=== PATIENT | female | born 1995 | race Caucasian/White ===

== ENCOUNTER 2019-10-07 06:48 | Inpatient (IN) | payer OTHER ==
[2019-10-07] VITALS (26 sets, daily range): BP systolic 112–159; BP diastolic 55–93
[~2019-10-07] VITALS: Ht 162.6 cm; Wt 78.6 kg
[2019-10-07] MEDS ORDERED: PRENTAB9 PO (07:17)
[2019-10-07] MEDS ORDERED: COLA100C5 PO (07:17)
[2019-10-07] MEDS ORDERED: LR 1,000 ML IV SCH (08:50)
[2019-10-07] MEDS ORDERED: LACTATED RINGER'S 1000 ML IV ONE (09:00)
[2019-10-07 09:46] LABS: HEMATOCRIT 34.2 % (36.0-47.0); HEMOGLOBIN 11.7 g/dl (12.0-15.5); MEAN CORPUSCULAR HGB CONC 34.2 g/dl (32.0-36.5); MEAN CORPUSCULAR VOLUME 84.9 fl (80.0-96.0); PLATELET COUNT, AUTOMATED 231 10^3/uL (150-450); RED BLOOD COUNT 4.03 10^6/uL (4.00-5.40); WHITE BLOOD COUNT 9.3 10^3/uL (4.0-10.0)
--- NOTE | 2019-10-07 10:03 | HPE ---
DATE OF ADMISSION: 10/07/2019 This lady is a 24-year-old 2, para 0, abortio 1, LMP 12/19/2018, EDC 10/05/2019 at 40 and 2 weeks of gestation with contractions 3 minutes apart, moderate intensity, 3 cm, bulging membranes. GBS negative. Risk factors is she had chlamydia urethritis in 2012, test of cure was negative, transfer of care from at 5 months. PAST HISTORY: 2012 spontaneous AB at 12 weeks. LABORATORY DATA: A+, HIV negative, hep negative, RPR negative, rubella immune. Varicella nonimmune Pap normal. Urine negative. Gonorrhea and chlamydia are negative. 1-hour glucose 108. GBS is negative. Blood pressure 137/71, respirations 18, pulse 71, temperature 98.2. Urine is 10/10, pH 6 and negative. She has a category one strip. Normocephalic, atraumatic. Neck: Full range of motion. Pupils equal and reactive to light. Distal pulses symmetric. No evidence of DVT, PE or superficial phlebitis. Chest is clear bilaterally to the bases. No wheezes or rhonchi. No CVA tenderness. Appropriate symphysis fundus height. Four quadrant bowel sounds are noted. She has no rashes, lesions or pruritus. No arthralgia, myalgia. No complaint of joint pain. No complaint of cough, shortness of breath or dyspnea on exertion. No bleeding. Neuro complete. No frequency, urgency. No nausea, vomiting, diarrhea, constipation. No diabetic issues. GYNECOLOGIC HISTORY: She has no abnormal Pap smears. Previous history of chlamydia positive 2012, test of cure was negative. PAST MEDICAL HISTORY/PAST SURGICAL HISTORY: Unremarkable. FAMILY HISTORY: Noncontributory. SOCIAL HISTORY: She does not smoke, drink abuse drugs. She is to a soldier. No domestic violence. Good support systems. ALLERGIES: She has no known allergies. MEDICATIONS: She is just taking vitamins. We discussed the consent for vaginal delivery, which was delivery of baby through the vagina with possible assistance with forceps or vacuum devices if needed for maternal or indications, forceps or vacuum are devices that consist with vaginal delivery when normal pushing efforts cannot achieve delivery on their own or when delivery is needed as emergency for baby's well-being. Medications may be used to induce or augment labor in order to achieve vaginal delivery and episiotomy may be required to help the baby deliver vaginally. She may also we require repair of lacerations or tears the vagina, vulva that can occur by vaginal delivery. In some cases emergencies occur that require emergency section, which will be discussed you by the provider and is only done for and maternal indications. section is an incision on your abdomen and usually it is safer for mom and baby than continuing labor and is only performed again for clinically indicated conditions. Risks of vaginal delivery include not limited to bleeding, infection, injury to vagina, pelvic structures, injury to baby, damage to the uterus, reaction to anesthesia, uterine rupture, risk of hysterectomy for life-threatening bleeding situations or even . Medications used to induce or augment labor increase risk of possibility of section, hysterectomy, hemorrhage, heart rate abnormalities and need for emergency section. Also the risk of perineal and vaginal lacerations, risk of bowel or bladder injury. With use of forceps or vacuum, may require may develop scratches, hematomas on the head or intracranial bleed. The patient expressed understanding of same. Wishes to have an epidural and wants to continue. Safe to proceed.
[2019-10-07] MEDS ORDERED: FENTANYL 2MCG/ML ROPIVACAINE 0.2% IN 0.9% NACL 100ML IVBAG As Ordered ONE (10:09)
[2019-10-07] MEDS ORDERED: diphenhydrAMINE INJ 50MG/ML VIAL (J1200) IV PRN (11:00)
[2019-10-07] MEDS ORDERED: EPIDURAL/PCA KEYS XX PRN (11:00)
[2019-10-07] MEDS ORDERED: LACTATED RINGER'S 1000 ML IV PRN (11:00)
[2019-10-07] MEDS ORDERED: FENTANYL/ROPIVACAINE/NACL BAG 100 ML EPIDURAL SCH (11:00)
[2019-10-07] MEDS ORDERED: EPIDURAL COMMENT XX SCH (11:00)
[2019-10-07] MEDS ORDERED: ePHEDrine SULFATE 25 MG/5 ML(5MG/ML) SYRINGE IV PRN (11:00)
[2019-10-07] MEDS ORDERED: ONDANSETRON 4MG/2ML VIAL (J2405) IV PRN (11:00)
[2019-10-07] MEDS ORDERED: REFRIGERATOR IV KEYS XX PRN (11:00)
[2019-10-07] MEDS ORDERED: NALOXONE INJ 0.4 MG/1 ML VIAL (J2310) IV PRN (11:00)
--- NOTE | 2019-10-07 13:10 | IPN ---
DATE: 10/07/2019 This lady is a 2, para 0, who was admitted with contractions in active labor. She had an epidural in place. Category one strip. Examination was 6 cm, not well applied, bulging membranes. An artificial rupture of membranes (AROM) was done draining clear liquid. The head did not come down completely over the cervix. We anticipate since the contractions have spaced out that once they start to increase in intensity and duration and moderate in time, that will bring the presenting part down. Presently in the left occiput transverse (LOT) position. The patient is comfortable. Category one strip. Safe to proceed.
[2019-10-07] MEDS ORDERED: OXYTOCIN 30 UNITS IN 0.9% NaCl 500ML IV BAG (J2590) As Ordered ONE (16:39)
[2019-10-07 18:04] LABS: CORD GAS ABE A -2.9; CORD GAS ABE V -2.6; CORD GAS HCO3 A 20.8 MEQ/L; CORD GAS HCO3 V 21.6 MEQ/L; CORD GAS O2 SAT A 76.3 %; CORD GAS O2 SAT V 70.6 %; CORD GAS PCO2 V 36.6 mmHg; CORD GAS PH A 7.404 UNITS; CORD GAS PH V 7.389 UNITS; CORD GAS PO2 A 30.6 mmHg; CORD GAS PO2 V 28.6 mmHg; CORD GAS SBC A 21.5 MEQ/L; CORD GAS SBC V 21.5 MEQ/L; CORD GAS TCO2 A 21.8 MEQ/L; CORD GAS TCO2 V 22.7 MEQ/L
[2019-10-07] MEDS ORDERED: OXYTOCIN DRIP 30 UNITS in IV 1 EA IV SCH (18:06)
[2019-10-07] MEDS ORDERED: IBUPROFEN 600 MG TAB PO PRN (18:15)
[2019-10-07] MEDS ORDERED: MOM 30ML SUSPENSION UDC PO PRN (18:15)
[2019-10-07] MEDS ORDERED: ANUSOL HC CREAM 30GM TOP PRN (18:15)
[2019-10-07] MEDS ORDERED: DIBUCAINE 1% OINTMENT 30GM TOP PRN (18:15)
[2019-10-07] MEDS ORDERED: METHYLERGONOVINE MALEATE 0.2 MG TAB PO PRN (18:15)
[2019-10-07] MEDS ORDERED: ACETAMINOPHEN TAB 650MG DOSE (2X325MG) PO PRN (18:15)
[2019-10-07] MEDS ORDERED: OXYTOCIN INJ 10 UNITS/ML VIAL (J2590) IV ONE (18:15)
[2019-10-07] MEDS ORDERED: MEASLES,MUMPS,RUBELLA VACCINE INJ (MMR-II) (90707) SC SCH (18:15)
[2019-10-07] MEDS ORDERED: RHOGAM 300 MCG (1500 IU) INJ (J2790) IM SCH (18:15)
--- NOTE | 2019-10-07 18:44 | IPN ---
DATE: 10/07/2019 This lady and her requested circumcision of their male . After discussing the risks and benefits of circumcision, the medical and nonmedical indications, the penile block and aftercare, expressed understanding of the penile block, aftercare and bleeding. All questions were answered. A 20-minute discussion. Signed the consent form. We await clearance by the psychotherapist.
--- NOTE | 2019-10-07 18:47 | DN ---
DATE: 10/07/2019 This lady is a 2, now para 1 who was admitted with contractions at 40 and 2/7 weeks of gestation, had an epidural in place, an artifical rupture of membranes (AROM) of clear liquid at full dilatation, spontaneous vaginal delivery of a live male weighing 7 pounds, 3 ounces, 3270 grams. scores of 9 and 9 at one and five minutes respectively. Placenta delivered spontaneously thereafter, three-vessel cord. Membranes and tissues intact. She sustained a first-degree tear which was oversewn in the usual fashion. The anterior, posterior and lateral oh were intact. The sphincter was tight and closed. The uterus contracted well down under Pitocin. Arterial pH is 7.40, base excess -2.9, venous pH 7.38, base excess -2.6. The patient and baby tolerating the procedure well.
[2019-10-07] MEDS: IBUPROFEN 800 MG TAB PO PRN (18:48)
[2019-10-07] MEDS: DOCUSATE SODIUM 100 MG CAP PO PRN (22:25)
[2019-10-07] MEDS: ACETAMINOPHEN 500 MG TAB PO PRN (22:25)
[2019-10-08] MEDS: IBUPROFEN 800 MG TAB PO PRN ×2 (04:08→15:07)
[2019-10-08 06:00] VITALS: BP 112/73
[2019-10-08 07:07] LABS: HEMATOCRIT 28.5 % (36.0-47.0); HEMOGLOBIN 9.8 g/dl (12.0-15.5); MEAN CORPUSCULAR HEMOGLOBIN 29.5 pg (27.0-33.0); MEAN CORPUSCULAR HGB CONC 34.4 g/dl (32.0-36.5); MEAN CORPUSCULAR VOLUME 85.8 fl (80.0-96.0); PLATELET COUNT, AUTOMATED 186 10^3/uL (150-450); RED BLOOD COUNT 3.32 10^6/uL (4.00-5.40); WHITE BLOOD COUNT 10.5 10^3/uL (4.0-10.0)
[2019-10-08] MEDS: PRENATAL VITAMINS CHEWABLE TABLET PO SCH (08:24)
[2019-10-08] MEDS: ACETAMINOPHEN 500 MG TAB PO PRN ×2 (09:57→19:34)
[2019-10-08 18:00] VITALS: BP 110/66
[2019-10-08] MEDS: DOCUSATE SODIUM 100 MG CAP PO PRN (22:37)
[2019-10-09] MEDS: IBUPROFEN 800 MG TAB PO PRN (01:25)
[2019-10-09 06:00] VITALS: BP 120/70
[2019-10-09] MEDS ORDERED: ACET-683 PO (06:12)
[2019-10-09] MEDS ORDERED: DIBU10OI TOP (06:12)
[2019-10-09] MEDS ORDERED: IBUP80TA PO (06:12)
--- NOTE | 2019-10-09 06:18 | IPNPDOC ---
Progress Note Date of Service: Oct 09, 2019 Day#: 2 Progress Note PPD 2 SUBJECT: Amina is a 24yo [id number] s/p uncomplicated on 10/07/19 after presenting in active labor at 40+ weeks, having had 1mll with repair, doing well day # 2. She has been ambulating, voiding spontaneously without issue and tolerating regular diet. Breast feeding without issue. Reports lochia is li ke a normal period. Patient is ambulating well. Has some cramping with . No f/c/n/v/CP/SOB. OBJECTIVE: VITAL SIGNS: Within normal limits, afebrile. Alert and oriented times three. Abdomen: Fundus firm at U-2. Soft, NTTP. Extremities: no pain with palpation of calves ASSESSMENT: Amina is a 24yo [id number] s/p uncomplicated on 10/07/19 after presenting in active labor at 40+ weeks, having had 1mll with repair, doing well day # 2. Vitals within normal limits, afebrile, hemodynamically stable with no evidence of infection. PLAN: 1. Discharge to home today. 2. Tylenol and Motrin for pain. 3. Encourage breast feeding and ambulation. 4. Interested in Nexplanon for contraception 5. Routine PP visit in 6 weeks in clinic. 6. Discussed return precautions at length. 7. Vaginal rest [address] Miladis López MD VS, I&O, 24H, [facility] Vital Signs/I&O Vital Signs Date Time Temp Pulse Resp B/P (MAP) Pulse Ox O2 Delivery O2 Flow Rate FiO2 10/08/19 18:00 99.5 74 18 110/66 (81) 10/07/19 21:30 97 Room Air Laboratory Data 24H LABS Laboratory Tests 2 10/08/19 06:47: Nucleated Red Blood Cells % (auto) 0.0 CBC/BMP Laboratory Tests 10/08/19 06:47 Miladis López MD Oct 09, 2019 06:18
--- NOTE | 2019-10-09 06:21 | DS.PDOC ---
Discharge Summary General Date of Admission Oct 07, 2019 at 08:42 Date of Discharge Oct 09, 2019 Attending Physician: Miladis López MD Discharge Summary PROCEDURES PERFORMED DURING STAY: spontaneous vaginal delivery ADMITTING DIAGNOSES: 1. Active labor at term DISCHARGE DIAGNOSES: 1. Active labor at term COMPLICATIONS/CHIEF COMPLAINT: LABOR. HISTORY OF PRESENT ILLNESS/HOSPITAL COURSE: Amina is a 24yo [id number] s/p uncomplicated on 10/07/19 after presenting in active labor at 40+ weeks, having had 1mll with repair, doing well day # 2. She had benign course and at time of discharge her vitals were within normal limits, afebrile, hemodynamically stable with no evidence of infection. DISCHARGE MEDICATIONS: Please see below. ALLERGIES: Please see below. PHYSICAL EXAMINATION ON DISCHARGE: VITAL SIGNS: Within normal limits, afebrile. Alert and oriented times three. Abdomen: Fundus firm at U-2. Soft, NTTP. Extremities: no pain with palpation of calves LABORATORY DATA: Please see below. DISPOSITION: Home DISCHARGE PLAN/INSTRUCTIONS: 1. Discharge to home today. 2. Tylenol and Motrin for pain. 3. Encourage breast feeding and ambulation. 4. Interested in Nexplanon for contraception 5. Routine PP visit in 6 weeks in clinic. 6. Discussed return precautions at length. 7. Vaginal rest 6 weeks DISCHARGE CONDITION: Stable TIME SPENT ON DISCHARGE: Greater than 30 minutes. Vital Signs/I&Os Vital Signs Date Time Temp Pulse Resp B/P (MAP) Pulse Ox O2 Delivery O2 Flow Rate FiO2 10/08/19 18:00 99.5 74 18 110/66 (81) 10/07/19 21:30 97 Room Air Laboratory Data Labs 24H Laboratory Tests 2 10/08/19 06:47: Nucleated Red Blood Cells % (auto) 0.0 CBC/BMP Laboratory Tests 10/08/19 06:47 Discharge Medications Scheduled Docusate Sodium (Colace) 100 Mg Capsule, 100 MG PO DAILY, (Reported) No.137/Iron/Folic Acd ( Vitamin Tablet) 1 Each Tablet, 1 TAB PO DAILY, (Reported) Scheduled PRN Acetaminophen (Acetaminophen) 500 Mg Tablet, 1,000 MG PO Q6HP PRN for PAIN LEVEL 6-10 Dibucaine (Dibucaine) 28 Gm Oint...g., 0 DOSE TOP Q4HP PRN for PAIN Ibuprofen (Ibuprofen) 800 Mg Tablet, 800 MG PO Q8HP PRN for PAIN LEVEL 6-10 Allergies Coded Allergies: No Known Allergies (Unverified , 10/07/19) Miladis López MD Oct 09, 2019 06:21
[2019-10-09] MEDS: PRENATAL VITAMINS CHEWABLE TABLET PO SCH (09:00)
== END 2019-10-09 13:28 | disposition home or self-care (01) | DRG 807 ==
LOC: M LDO 06:48 → M LDI 08:42 → M OBS 21:16
PROVIDERS: ADMIT Obstetrics & Gynecology; ATTEND Obstetrics & Gynecology
PROC: 10E0XZZ Delivery of Products of Conception, External Approach (ICD-10-PCS; principal; 2019-10-07)
PROC: 0HQ9XZZ Repair Perineum Skin, External Approach (ICD-10-PCS; 2019-10-07)
PROC: 10907ZC Drainage of Amniotic Fluid, Therapeutic from Products of Conception, Via Natural or Artificial Opening (ICD-10-PCS; 2019-10-07)
DX: O48.0 Post-term pregnancy (principal); Z37.0 Single live birth; Z3A.40 40 weeks gestation of pregnancy; O70.0 First degree perineal laceration during delivery